=== PATIENT | male | born 1945 | race Caucasian/White ===

== ENCOUNTER 2017-12-08 10:31 | Emergency (ER) | payer MEDICARE, OTHER ==
[2017-12-08 10:36] VITALS: BP 152/74
[2017-12-08] MEDS ORDERED: PROCHLORPERAZINE EDISYLATE INJ 10 MG/2 ML VIAL IV ONE (11:01)
[2017-12-08] MEDS ORDERED: ONDANSETRON HCL INJ/PF 4 MG/2 ML SDV IV ONE (11:01)
[2017-12-08] MEDS ORDERED: KETOROLAC TROMETHAMINE INJ/PF 30 MG/1 ML SDV IV ONE (11:03)
[2017-12-08] MEDS ORDERED: NORMAL SALINE 500 ML IV ONE (11:03)
--- NOTE | 2017-12-08 11:44 | RADIOLOGY REPORT (SQ) ---
EXAM DESCRIPTION: CT HEAD WITHOUT; CT CERVICAL SPINE WITHOUT COMPLETED DATE/TIME: 12/08/2017 11:27 am REASON FOR STUDY: headache neck pain 8wk; neck head pain 8wk COMPARISON: None. TECHNIQUE: Axial images acquired through the brain and cervical spine without intravenous contrast. Images reviewed with brain, subdural, lung, soft tissue and bone windows. Reconstructed coronal and sagittal MPR images reviewed. Images stored on PACS. All CT scanners at this facility use dose modulation, iterative reconstruction, and/or weight based d osing when appropriate to reduce radiation dose to as low as reasonably achievable (ALARA). [facility]: Dose Right [facility]: CareDose [facility]: Dose Right [facility]: Teradose 4D [facility]: [employer] RADIATION DOSE: CT Rad equipment meets quality standard of care and radiation dose reduction techniq ues were employed. CTDIvol: 53.2 mGy. DLP: 1017 mGy-cm.; CT Rad equipment meets quality standard of c are and radiation dose reduction techniques were employed. CTDIvol: 23.4 mGy. DLP: 462 mGy-cm. mGy. LIMITATIONS: None. FINDINGS: Brain: No hemorrhage or mass or shift. CSF containing spaces are normal. Intact bones a nd orbits. Clear paranasal sinuses. Cervical spine: Normal alignment. Osteopenic. C6-7 disc space loss with sclerosis and small osteop hytes no high-grade spinal stenosis detected. No fracture or bone lesion. Left facet disease at C3- 4 particularly. No soft tissue mass. Clear lung apices. IMPRESSION: 1. Normal brain CT. 2. Cervical spondylosis without malalignment or fracture. TECHNICAL DOCUMENTATION: JOB ID: [id number] Quality ID # [id number]: Final reports with documentation of one or more dose reduction techniques (e.g., Au tomated exposure control, adjustment of the mA and/or kV according to patient size, use of iterative reconstruction technique) 2010 [employer]- All Rights Reserved Reading location - IP/workstation name: [email or web address]
--- NOTE | 2017-12-08 11:44 | RADIOLOGY REPORT (SQ) ---
EXAM DESCRIPTION: CT HEAD WITHOUT; CT CERVICAL SPINE WITHOUT COMPLETED DATE/TIME: 12/08/2017 11:27 am REASON FOR STUDY: headache neck pain 8wk; neck head pain 8wk COMPARISON: None. TECHNIQUE: Axial images acquired through the brain and cervical spine without intravenous contrast. Images reviewed with brain, subdural, lung, soft tissue and bone windows. Reconstructed coronal and sagittal MPR images reviewed. Images stored on PACS. All CT scanners at this facility use dose modulation, iterative reconstruction, and/or weight based d osing when appropriate to reduce radiation dose to as low as reasonably achievable (ALARA). [facility]: Dose Right [facility]: CareDose [facility]: Dose Right [facility]: Teradose 4D [facility]: [employer] RADIATION DOSE: CT Rad equipment meets quality standard of care and radiation dose reduction techniq ues were employed. CTDIvol: 53.2 mGy. DLP: 1017 mGy-cm.; CT Rad equipment meets quality standard of c are and radiation dose reduction techniques were employed. CTDIvol: 23.4 mGy. DLP: 462 mGy-cm. mGy. LIMITATIONS: None. FINDINGS: Brain: No hemorrhage or mass or shift. CSF containing spaces are normal. Intact bones a nd orbits. Clear paranasal sinuses. Cervical spine: Normal alignment. Osteopenic. C6-7 disc space loss with sclerosis and small osteop hytes no high-grade spinal stenosis detected. No fracture or bone lesion. Left facet disease at C3- 4 particularly. No soft tissue mass. Clear lung apices. IMPRESSION: 1. Normal brain CT. 2. Cervical spondylosis without malalignment or fracture. TECHNICAL DOCUMENTATION: JOB ID: [id number] Quality ID # [id number]: Final reports with documentation of one or more dose reduction techniques (e.g., Au tomated exposure control, adjustment of the mA and/or kV according to patient size, use of iterative reconstruction technique) 2010 [employer]- All Rights Reserved Reading location - IP/workstation name: [email or web address]
[2017-12-08 11:51] LABS: ANION GAP 12 (5-19); BLOOD UREA NITROGEN 14 mg/dL (7-20); CALCIUM 9.7 mg/dL (8.4-10.2); CARBON DIOXIDE 28 mmol/L (22-30); CHLORIDE 102 mmol/L (98-107); GLUCOSE 195 mg/dL (75-110); POTASSIUM 4.6 mmol/L (3.6-5.0); SODIUM 142.3 mmol/L (137-145)
--- NOTE | 2017-12-08 12:39 | ER Document Report ---
ED General - General Chief Complaint: Headache >24 hrs old Stated Complaint: HEADACHE Time Seen by Provider: 12/08/17 10:54 TRAVEL OUTSIDE OF THE [place] IN LAST 30 DAYS: No - HPI Patient complains to provider of: Headache Notes: Patient coming in complaining of a headache in the temporal region occipital region base of the skull ongoing for 8 weeks. Patient states he was seen by his primary care physician at the [facility] and was given muscle relaxers. Patient states muscle relaxers are not working therefore came to the ER for further evaluation. Patient denies any head trauma nausea vomiting diarrhea. States his headache has not changed in characteristics over the last 8 weeks. Patient states some of the pain is achy but also has a sharp shooting component going to the temporal region. Patient otherwise ambulate without difficulty no obvious distress upon my evaluation. - Related Data Allergies/Adverse Reactions: caffeine [From [employer]orgesic Forte] Allergy (Mild, Verified 12/08/17 10:32) orphenadrine citrate [From [employer]orges[employer] Forte] Allergy (Mild, Verified 12/08/17 10: 32) Past Medical History - Social History Smoking Status: Never Smoker Family History: Other - mother [place] in 50s, father from lung [place] Patient has suicidal ideation: No Patient has homicidal ideation: No Renal/ Medical History: Denies: Hx Peritoneal Dialysis GI Medical History: Reports: Hx Gastroesophageal Reflux Disease, Hx Hiatal Hernia Past Surgical History: Reports: Hx Orthopedic Surgery - left rotator cuff sx 2012, Hx Tonsillectomy - as a child - Immunizations Hx Diphtheria, Pertussis, Tetanus Vaccination: No Review of Systems - Review of Systems Constitutional: No symptoms reported EENT: No symptoms reported Cardiovascular: No symptoms reported Respiratory: No symptoms reported Gastrointestinal: No symptoms reported Genitourinary: No symptoms reported Male Genitourinary: No symptoms reported Musculoskeletal: No symptoms reported Skin: No symptoms reported Hematologic/Lymphatic: No symptoms reported Neurological/Psychological: Headaches -: Yes All other systems reviewed and negative Physical Exam - Vital signs Vitals: Temp Pulse Resp BP Pulse Ox 97.6 F 84 16 152/74 H 96 12/08/17 10:35 12/08/17 10:35 12/08/17 10:35 12/08/17 10:35 12/08/17 10:35 Interpretation: Normal - General General appearance: Appears well, Alert - HEENT Head: Normocephalic, Atraumatic Eyes: Normal Pupils: PERRL Neck: Normal Notes: Examination of the scalp does not reveal any signs of a zoster no rashes palpation of the temporalis muscle bilaterally also does not reproduce any symptoms patient does have some tenderness palpation of the inion and the base of the skull along with bilateral occipital pain to palpation - Respiratory Respiratory status: No respiratory distress Chest status: Nontender Breath sounds: Normal Chest palpation: Normal - Cardiovascular Rhythm: Regular Heart sounds: Normal auscultation Murmur: No - Abdominal Inspection: Normal Distension: No distension Bowel sounds: Normal Tenderness: Nontender Organomegaly: No organomegaly - Back Back: Normal, Nontender - Extremities General upper extremity: Normal inspection, Nontender, Normal color, Normal ROM , Normal temperature General lower extremity: Normal inspection, Nontender, Normal color, Normal ROM , Normal temperature, Normal weight bearing. No: Annamaria's sign - Neurological Neuro grossly intact: Yes Cognition: Normal Orientation: AAOx4 Shahbaz Coma Scale Eye Opening: Spontaneous Emerson Coma Scale Verbal: Oriented Shahbaz Coma Scale Motor: Obeys Commands Shahbaz Coma Scale Total: 15 Speech: Normal Motor strength normal: LUE, RUE, LLE, RLE Sensory: Normal - Psychological Associated symptoms: Normal affect, Normal mood - Skin Skin Temperature: Warm Skin Moisture: Dry Skin Color: Normal Course - Re-evaluation Re-evalutation: 12/08/17 20:08 Patient received good relief with IV fluids ketorolac Compazine Zofran combination. Will prescribe the patient Compazine Zofran to take orally at home. Also did recommend to the patient mixed etiology for his pain possible tension versus an occipital neuralgia. Recommend the patient follow-up with his primary care physician and also possibly follow-up with a neurologist/pain specialist. 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 The patient is neurologically intact. Given the extremely low risk of these diagnoses further testing and evaluation for these possibilities does not appear to be indicated at this time. The patient has been instructed to return if the symptoms worsen or change in any way.. - Vital Signs Vital signs: Temp Pulse Resp BP Pulse Ox 97.6 F 84 16 152/74 H 96 12/08/17 10:35 12/08/17 10:35 12/08/17 10:35 12/08/17 10:35 12/08/17 10:35 - Laboratory Result Diagrams: 12/08/17 11:10 Laboratory results interpreted by me: 12/08/17 11:10 Glucose 195 H Discharge - Discharge Clinical Impression: Headache Qualifiers: Headache type: unspecified Headache chronicity pattern: unspecified pattern Intractability: not intractable Qualified Code(s): R51 - Headache Condition: Good Disposition: HOME, SELF-CARE Instructions: Headache ([facility]), Tension Headache ([facility]) Additional Instructions: CAT scans of your head neck today do not reveal any acute pathology. Your basic laboratory studies also did not show any acute pathology. I do believe your headache is either a tension headache or occipital neuralgia headache. Please continue with the regimen of Tylenol and Motrin as prescribed along with taking the Compazine Zofran together as prescribed. I would highly recommend following up with your primary care physician after the holiday for further evaluation and possible referral to a pain specialist or a neurologist for further evaluation. Return immediately to the ER if her symptoms worsen or if you develop a fever. Follow-up with your primary care physician. Prescriptions: Ibuprofen [Motrin 600 mg Tablet] 600 mg PO Q8HP PRN #21 tablet PRN Reason: Ondansetron HCl [Zofran 4 mg Tablet] 1 tab PO Q6 #30 tablet Prochlorperazine Maleate [Compazine] 5 mg PO Q6 #30 tablet Forms: Return to Work Referrals: LOCALMD,NO [NO LOCAL MD] - Follow up as needed
== END 2017-12-08 14:00 | disposition home or self-care (01) ==
LOC: ER 10:31
DX: R51 Headache (principal)
CPT/HCPCS: 99284; 96361; 96374; 96375; 36415; 80048; 70450; 72125; J1885; J0780; J2405; J7040